=== PATIENT | male | born 1980 | race Caucasian/White ===

== ENCOUNTER 2019-12-12 22:09 | Emergency (ER) | payer OTHER ==
[~2019-12-12] VITALS: Ht 177.8 cm; Wt 111.1 kg
[2019-12-12 22:40] LABS: ABSOLUTE BASOPHILS 0.1 thou/uL (0.0-0.2); ABSOLUTE EOSINOPHILS 0.3 thou/uL (0.0-0.7); ABSOLUTE LYMPHOCYTES 3.5 thou/uL (0.8-5.3); ABSOLUTE MONOCYTES 0.7 thou/uL (0.0-1.2); ABSOLUTE NEUTROPHILS 6.1 thou/uL (1.6-8.1); BASOPHILS 0.6 %; EOSINOPHILS 2.8 %; HEMATOCRIT 42.7 % (42.0-52.0); HEMOGLOBIN 15.1 gm/dL (14.0-18.0); LYMPHOCYTES 32.5 %; MCHC 35.4 g/dL (28.0-37.0); MCV 93.2 fL (80.0-100.0); MONOCYTES 6.9 %; MPV 8.1 fl. (7.2-11.1); NUCLEATED RBCS 0 /100WBC; PLATELET COUNT* 244 thou/uL (150-400); POLYS 57.2 %; RBC 4.59 mil/uL (4.50-6.00); RDW-CV 12.7 % (10.5-14.5); WBC 10.7 thou/uL (4.0-11.0)
[2019-12-12 22:43] LABS: CALCIUM 8.3 mg/dL (8.5-10.1); CREATININE 1.5 mg/dL (0.6-1.3); POTASSIUM 3.8 mmol/L (3.5-5.1)
[2019-12-12 22:48] LABS: PROTIME 10.7 Seconds (9.20-11.50)
[2019-12-12 22:53] LABS: ALBUMIN 3.7 g/dL (3.4-5.0); TOTAL BILIRUBIN 0.3 mg/dL (<0.1-1.0); TOTAL PROTEIN 7.6 g/dL (6.4-8.2)
[2019-12-13 01:52] VITALS: BP 122/77
--- NOTE | 2019-12-13 09:34 | EKG ---
[place] [address] ELECTROCARDIOGRAM REPORT Name: TORRESTATE Room: [facility]#: [id number] Admission: 12/12/19 Attend Phys: Discharge: 12/13/19 Date of : 76 Date of Service: 12/12/192212 Report #: [id number] THIS REPORT FOR: //name// [facility] ED Test Date: 2019-12-12 Test Time: 22:13:33 Pat Name: TATE TORRES Department: Room: Gender: [employer] Operator: [facility] : 1980 Requested By: Shandra Bush Order Number: [id number] MD: Linden Tejada Measurements Intervals [place] Rate: 103 P: 32 MN: 164 QRS: 15 QRSD: 87 T: 15 QT: 339 QTc: 444 Interpretive Statements Sinus tachycardia Delayed R wave progression over the anterior precordium No previous ECG available for comparison Electronically Signed On 12-13-2019 9:34:14 CDT by Linden Tejada [email or web address] <ELECTRONICALLY SIGNED> By: Linden Tejada MD, [facility] 12/13/19933 12 12 Linden Tejada MD, FACC /EPI
== END 2019-12-13 01:53 | disposition home or self-care (01) ==
LOC: M.ERS 22:09
PROVIDERS: Emergency Medicine
DX: R07.89 Other chest pain (principal); G43.909 Migraine, unspecified, not intractable, without status migrainosus; J45.909 Unspecified asthma, uncomplicated; Z88.1 Allergy status to other antibiotic agents

== ENCOUNTER 2020-11-03 22:35 | Emergency (ER) | payer OTHER ==
[~2020-11-03] VITALS: Ht 177.8 cm; Wt 106.6 kg
[2020-11-04] MEDS ORDERED: FLEXERIL PO (03:09)
[2020-11-04] MEDS ORDERED: MEDROLDOSEPACK PO (03:09)
[2020-11-04] MEDS ORDERED: TRAMADOL 50 MG50 MG PO (03:09)
[2020-11-04] MEDS ORDERED: IBUPROFEN 800800 MG PO (03:09)
[2020-11-04 03:21] VITALS: BP 158/79
== END 2020-11-04 03:21 | disposition home or self-care (01) ==
LOC: M.ERS 22:35
DX: M54.16 Radiculopathy, lumbar region (principal); G43.909 Migraine, unspecified, not intractable, without status migrainosus; J45.909 Unspecified asthma, uncomplicated; Z88.1 Allergy status to other antibiotic agents

== ENCOUNTER 2020-12-08 07:04 | Emergency (ER) | payer OTHER ==
[~2020-12-08] VITALS: Ht 177.8 cm; Wt 106.6 kg
[~2020-12-08 07:04] MED LIST: FLEXERIL PO; IBUPROFEN 800800 MG PO; MEDROLDOSEPACK PO; TRAMADOL 50 MG50 MG PO
[2020-12-08 11:08] VITALS: BP 142/95
[2020-12-08] MEDS ORDERED: IMITREX100 MG PO (11:17)
[2020-12-08] MEDS ORDERED: BUTALB-APAP-CA1 EACH PO (11:17)
== END 2020-12-08 11:26 | disposition home or self-care (01) ==
LOC: M.ERS 07:04
DX: G43.909 Migraine, unspecified, not intractable, without status migrainosus (principal); F41.9 Anxiety disorder, unspecified; J45.909 Unspecified asthma, uncomplicated; Z88.0 Allergy status to penicillin